=== PATIENT | female | born 2000 | race Caucasian/White ===

== ENCOUNTER 2020-12-11 00:39 | Emergency (ER) | payer OTHER ==
[2020-12-11] MEDS ORDERED: Lorazepam 0.5 MG TAB ONE (01:18)
[2020-12-11] MEDS ORDERED: Ondansetron ODT 4 MG TAB ONE (01:18)
== END 2020-12-11 01:33 | disposition home or self-care (01) ==
LOC: NAV ERS 00:39
DX: F41.1 Generalized anxiety disorder (principal); K90.0 Celiac disease
CPT/HCPCS: 99283; Q0162